=== PATIENT | male | born 1985 | race Caucasian/White ===

== ENCOUNTER → 2022-02-12 08:18 | Outpatient (CLI) | payer OTHER, SELFPAY ==
--- NOTE | 2022-02-12 | DI.ECHO.S_ITS ---
[facility] +---------+ : : [address] : : : : [id number] : : : : Phone: [phone]+ Echocardiogram Report + + :Name: AYLEEN GARAY Study Date: 02/12/2022 Height: 69 in : :[facility] ReadingLocation: Weight: 240 lb : : Gender: Male BSA: 2.2 m2 : :: 1985 Age: 36 yrs BP: 117/72 mmHg: :Reason For Study: Palpitations : :Ordering Physician: QTC Performed By: Amy Medina : :Referring: [id number] : + + Interpretation Summary The left ventricle appears normal in size, wall thickness, and systolic function without any focal wall motion abnormalities. The ejection fraction is estimated to be 60-65%. Diastolic parameters suggest probable normal left ventricular diastolic function and normal filling pressures. The right ventricle is at the upper limits of normal in size. The right ventricular systolic function is normal. The right ventricular systolic pressure is estimated to be at least 26 mmHg based on an estimated right atrial pressure of 8 mm Hg. Both atria are normal in size. There is no significant valvular heart disease. The aortic root is borderline dilated. Procedure: A two-dimensional transthoracic echocardiogram with color flow and Doppler was performed. The study quality was technically adequate. There is no prior echocardiogram noted for this patient. The patient was in normal sinus rhythm during the exam. Left Ventricle: The left ventricle appears normal in size, wall thickness, and systolic function without any focal wall motion abnormalities. There is no ventricular septal defect visualized. The ejection fraction is estimated to be 60-65%. Diastolic parameters suggest probable normal left ventricular diastolic function and normal filling pressures. Right Ventricle: The right ventricle is at the upper limits of normal in size. The right ventricular systolic function is normal. Atria: Both atria are normal in size. There is no Doppler evidence for an interatrial shunt. Mitral Valve: The mitral valve is normal in structure and function. There is trace mitral regurgitation. Aortic Valve: The aortic valve is normal in structure and function. No aortic regurgitation is present. Tricuspid Valve: The tricuspid valve leaflets are thin and pliable. There is a trace or physiologic amount of tricuspid regurgitation. The right ventricular systolic pressure is estimated to be at least 26 mmHg based on an estimated right atrial pressure of 8 mm Hg. Pulmonic Valve: The pulmonic valve is not well seen, but is grossly normal. There is a trace or physiologic amount of pulmonic regurgitation. There is no significant valvular heart disease. Great Vessels: The aortic root is borderline dilated. The ascending aorta is at the upper limits of normal in size. The aortic arch is normal in size. The IVC is of normal diameter and collapses less than 50% with a sniff. This suggests a right atrial pressure of 8 mm Hg. Pericardium/ Pleura There is no pericardial effusion. There is no pleural effusion. MMode/2D Measurements & Calculations LVIDd: 5.2 cm LVOT diam: 2.4 cm LVIDs: 2.9 cm Ao root diam: 3.9 cm FS: 45.0 % asc Aorta Diam: 3.5 cm EPSS: 0.74 cm Ao Arch Diam (Prox Trans): 2.6 cm IVSd: 0.80 cm LVPWd: 0.95 cm LV looney. diameter/BSA (cm/m^2): 2.3 LV sys. diameter/BSA (cm/m^2): 1.3 LA A2 area: 18.9 cm2 RA long axis: 5.0 cm LA A4 area: 16.3 cm2 RA area: 13.2 cm2 LA length (vol): 5.2 cm RA vol: 29.4 ml LA vol: 50.5 ml RA : 13.2 ml/m2 LA vol index: 22.6 ml/m2 IVC diam: 1.6 cm RVD1 (basal): 4.2 cm TAPSE: 3.1 cm Doppler Measurements & Calculations Ao V2 max: 101.6 cm/sec LVOT Max Hao: 78.9 cm/sec Ao V2 mean: 76.1 cm/sec LV V1 max P.5 mmHg Ao max P.1 mmHg LV V1 VTI: 16.5 cm Ao mean P.6 mmHg MARCO A(I,D): 3.2 cm2 Ao V2 VTI: 23.7 cm MARCO A(V,D): 3.6 cm2 sev ratio: 0.69 MARCO A indexed to BSA (cm^2/m^2): 1.4 MV E max hao: 51.9 cm/sec TR max hao: 210.6 cm/sec MV A max hao: 45.1 cm/sec TR max P.7 mmHg MV E/A: 1.2 PA V2 max: 65.8 cm/sec Med Peak E' Hao: 7.8 cm/sec PA V2 mean: 48.7 cm/sec E/E' med: 6.7 PA mean P.0 mmHg Lat Peak E' Hao: 9.9 cm/sec PA pr(Accel): 49.0 mmHg E/E' lat: 5.3 E/e' average: 6.0 MV dec time: 0.19 sec SV(LVOT): 75.8 ml Reading Physician:11:17 PM
== END ==
PROVIDERS: Referring Provider Neuromusculoskeletal Medicine, Sports Medicine; Visit Provider Neuromusculoskeletal Medicine, Sports Medicine
DX: R00.2 Palpitations (principal)
CPT/HCPCS: 93306